=== PATIENT | female | born 1965 | race Caucasian/White ===

== ENCOUNTER 2020-12-03 09:14 | Emergency (ER) | payer MEDICARE, OTHER ==
[~2020-12-03] VITALS: Ht 149.9 cm; Wt 65.7 kg
--- NOTE | 2020-12-03 09:44 | PHYS DOC ---
Past History Past Surgical History: Other Additional Past Surgical Histo: unknown General Adult EDM: Chief Complaint: HEAD INJURY/TRAUMA HPI: HPI: 55-year-old female with special needs presents from a fci forehead laceration. The patient was walking past another person in the hallway when she tripped and fell against a doorway. She was not knocked unconscious. She did sustain a linear laceration to the top of her scalp. She had a little bit of bleeding but it was controlled prior to arrival. Patient denies any other pain or injuries. Review of Systems: Review of Systems: Constitutional: Denies fever or chills Eyes: Denies change in visual acuity HENT: Denies nasal congestion or sore throat Respiratory: Denies cough or shortness of breath Cardiovascular: Denies chest pain or edema GI: Denies abdominal pain, nausea, vomiting, bloody stools or diarrhea : Denies dysuria Musculoskeletal: Denies back pain or joint pain Integument: Scalp laceration Neurologic: Denies headache, focal weakness or sensory changes Endocrine: Denies polyuria or polydipsia Lymphatic: Denies swollen glands Psychiatric: Denies depression or anxiety Allergies: Allergies: Allergies Coded Allergies Type Severity Reaction Last Updated Verified Hydantoins Allergy Unknown 12/03/20 Yes Physical Exam: PE: Constitutional: Well developed, well nourished, no acute distress, non-toxic appearance. [] HENT: Normocephalic, atraumatic, bilateral external ears normal, oropharynx moist, no oral exudates, nose normal. [] Eyes: PERRLA, EOMI, conjunctiva normal, no discharge. [] Neck: Normal range of motion, no tenderness, supple, no stridor. [] Cardiovascular: Heart rate regular rhythm, no murmur [] Lungs & Thorax: Bilateral breath sounds clear to auscultation [] Abdomen: Bowel sounds normal, soft, no tenderness, no masses, no pulsatile ma sses. [] Skin: 4 cm linear laceration of the scalp [] Back: No tenderness, no CVA tenderness. [] Extremities: No tenderness, no cyanosis, no clubbing, ROM intact, no edema. [] Neurologic: Alert and oriented X 3, normal motor function, normal sensory function, no focal deficits noted. [] Psychologic: Affect normal, judgement normal, mood normal. [] Current Patient Data: Vital Signs: Vital Signs Date Time Temp Pulse Resp B/P (MAP) Pulse Ox O2 Delivery O2 Flow Rate FiO2 12/03/20 09:15 97.1 90 18 144/96 (112) 98 Room Air EKG: EKG: [] Radiology/Procedures: Radiology/Procedures: [] Heart Score: C/O Chest Pain: N/A Risk Factors: Risk Factors: DM, Current or recent (<one month) smoker, HTN, HLP, family history of CAD, obesity. Risk Scores: Score 0 - 3: 2.5% MACE over next 6 weeks - Discharge Home Score 4 - 6: 20.3% MACE over next 6 weeks - Admit for Clinical Observation Score 7 - 10: 72.7% MACE over next 6 weeks - Early Invasive Strategies Course & Med Decision Making: Course & Med Decision Making Pertinent Labs and Imaging studies reviewed. (See chart for details) The patient's laceration was well approximated after it was cleaned up. I repaired it with Dermabond because I believe it will be an adequate repair as well as the patient's special needs status. It was highly unlikely she would tolerate another type of repair. See below for more details. [] Dragon Disclaimer: Dragon Disclaimer: This electronic medical record was generated, in whole or in part, using a voice recognition dictation system. Laceration Repair Lac Repair Indication: [] 4 cm linear laceration of the scalp Procedure: The patient and her caregiver gave permission for repair of her laceration. The wound was thoroughly cleansed with Hibiclens solution. No foreign bodies were found. Bleeding was controlled. I placed a layer of Dermabond tissue adhesive over the wound. There was good skin approximation. No dressing was applied. Total repaired wound length: 4 cm. Other Items: None The patient tolerated the procedure well. Complications: None. Departure Departure: Impression: Primary Impression: Scalp laceration Qualified Codes: S01.01XA - Laceration without foreign body of scalp, initial encounter Disposition: HOME / SELF CARE / HOMELESS Condition: IMPROVED Referrals: AROLDO MCMAHAN MD (PCP) Patient Instructions: Tissue Adhesive Wound Care, Oegu-wi-Dimw MATT WEBB DO Dec 03, 2020 09:44
[2020-12-03 09:48] VITALS: BP 137/75
== END 2020-12-03 09:48 | disposition home or self-care (01) ==
LOC: ER 09:14
DX: S01.01XA Laceration without foreign body of scalp, initial encounter (principal); Z88.8 Allergy status to other drugs, medicaments and biological substances; W01.0XXA Fall on same level from slipping, tripping and stumbling without subsequent striking against object, initial encounter; Y93.89 Activity, other specified; Y92.89 Other specified places as the place of occurrence of the external cause; Y99.8 Other external cause status
CPT/HCPCS: 12002; 99282

== ENCOUNTER → 2021-05-26 | Outpatient (CLI) | payer MEDICARE, OTHER ==
--- NOTE | 2021-05-26 10:58 | RAD ---
Exam Date: 05/26/2021 9:42 AM US ABDOMEN COMPLETE Indication: Reason: ABNORMAL LABS / Spl. Instructions: / History: . TECHNIQUE: Multiple longitudinal and transverse sonographic images of the abdomen are submitted for interpretation. FINDINGS: The liver is normal in size but diffusely increased in echogenicity and heterogeneous in echotexture. The portal vein is patent with hepatopetal flow. No focal intrahepatic abnormality is seen. The common bile duct and gallbladder are not well-visualized due to fatty liver and overlying bowel g as. The spleen is normal in size and echogenicity. The visualized abdominal aorta, inferior vena cava an d pancreas are within normal limits. There is no upper abdominal ascites. The kidneys are normal in appearance, with the right kidney measuring 8.3 cm and the left kidney measuring 9.2 cm. IMPRESSION: Diffusely increased hepatic echogenicity and heterogeneous echotexture, consistent with underlying fa tty infiltration and/or hepatocellular disease. This limits sonographic sensitivity. Suboptimal visualization of the common bile duct and gallbladder due to overlying bowel gas and fatty liver. Electronically signed by: Nolberto Cordova MD (05/26/2021 10:55 AM) [id number]
== END ==
LOC: US 09:19
PROVIDERS: ATTEND Specialist
DX: K76.0 Fatty (change of) liver, not elsewhere classified (principal); R74.8 Abnormal levels of other serum enzymes
CPT/HCPCS: 76700